=== PATIENT | male | born 1950 | race Caucasian/White ===

== ENCOUNTER 2024-07-27 02:22 | Inpatient (IN) | payer BC, MEDICARE ==
[~2024-07-27] VITALS: Ht 170.2 cm; Wt 95.8 kg
[2024-07-27] VITALS (16 sets, daily range): BP systolic 130–153; BP diastolic 74–94; PULSE 62–78; RESP 14–24; TEMP 97.2–99.2; O2SAT 93–96
--- NOTE | 2024-07-27 02:30 | ELECTROCARDIOGRAPH REPORT ---
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 Geovani Desouza Measurements Intervals [place] Rate: 84 P: 17 MT: 184 QRS: -53 QRSD: 112 T: 78 QT: 377 QTc: 446 Interpretive Statements Sinus rhythm LAD, consider left anterior fascicular block Baseline wander in lead(s) II Electronically Signed On 07-27-2024 3:09:[address] Geovani Desouza Please click the below link to view image of tracing.
[2024-07-27] MEDS ORDERED: VALS320T17 PO (02:36)
--- NOTE | 2024-07-27 02:36 | Physician Documentation ---
History of Present Illness ~ Chief Complaint: See Chief Complaint Stated Complaint: CHEST PAIN Time Seen by MD: 02:34 OK to notify your PCP?: Yes Source: patient, RN/MD, RN notes reviewed, old records Mode of Arrival: Air Transport Exam Limitations: no limitations HPI 74 year old male presents as a transfer from [facility] due to an NSTEMI, he was started on Heparin and sent to our facility via helicoper. HPI per [facility] 74 year old male presents with chest pain. This started about 30 minutes to 45 minutes ago. It is left sided, non radiating. Associate with some nausea but no vomiting, diaphoresis. He has not had similar previously. He has been having increased blood pressure medicine week or 2 ago but they have been noticing pressures over [address] Chest + Abdomen + Pelvis w Con via [facility] Impressions: Chronic elevation left hemidiaphram with distended air and fluid filled stomach beneath the hemidiaphragm. Tjere is no evidence of bowel obstruction or perforation. Bilateral pecocaliectasis greater on the right possibly due to chronc ureterop elvic junction stenosis. There is no visual calculi. Renal spinal lithiasis L5-S1 due to a combination is bilateral spondyolysis and degenerative changes. Left posterior basilar subsebmental atelectasis, indeterminate in age. Superimposed pnuemonia not excluded. XR Chest 1 View Portable Impression: Chronic elevation right hemidoaphragm with air filled loops of bowl beneath the left hemidiaphragm. Otherwise unremarkable expiratory chest. Medication Reconciliation Allergies: Coded Allergies: No Known Allergies (Unverified , 07/27/24) Scheduled Aspirin (Aspirin), 1 TAB PO DAILY Atorvastatin Calcium (Atorvastatin Calcium), 20 MG PO DAILY Carvedilol (Coreg), 1 TAB PO Q12H Clopidogrel Bisulfate (Plavix), 1 TAB PO DAILY Valsartan (Valsartan), 1 TAB PO DAILY, (Reported) Scheduled PRN Ibuprofen (Ibuprofen), 1 TAB PO DAILY PRN for headache, (Reported) Discontinued Medications Ibuprofen (Ibuprofen), 2 CAP PO Q8H PRN for headache, (Reported) Discontinued Reason: patient no longer taking Review of Systems All Other Systems at this time: Reviewed and Negative ROS As stated above in the HPI, otherwise all systems are reviewed and negative. Physical Exam Vital Signs: RN Vital Signs have been reviewed: Yes, Temperature: 98.9, Source: Oral, Heart Rate: 79, Respiratory Rate: 17, BP: 158/96, Pulse Oximetry: 97, Weight: 95.800 Oxygen Flow Rate: 0 Pulse Oximetry Reflects: adequate oxygenation Physical Exam General: The patient is well developed, well nourished, nontoxic appearing and is in no acute distress. Skin: [place], warm and dry with no rashes. HEENT: Head was normocephalic and atraumatic. Eyes - pupils equal, round, reactive to light and accommodation. Extraocular movements were intact. Con junctivae were nonicteric. Ears - bilateral tympanic membranes were normal. The mouth and oropharynx were clear with moist mucous membranes. There were no pharyngeal exudates or erythema. Neck: Supple and nontender. There was no jugular venous distention, lymphadenopathy, thyromegaly or masses. Chest: Clear to auscultation bilaterally without wheezes, rales or rhonchi. No accessory muscle use. No dullness to percussion. Heart: Rate regular and rhythmic. S1, S2. No murmurs. Palpation of the chest wall was normal. No rubs or thrills. Abdomen: Soft, nontender and nondistended. Positive bowel sounds. No guarding or rebound. No hepatosplenomegaly or palpable masses. Extremities: Trace edema to the lower extremities. The patient moves all extremities. Pulses were equal and symmetric. Neurologic: Cranial nerves II-XII were intact. Sensation was intact to light touch throughout. Motor strength was 5/5 in all four extremities. Deep tendon reflexes were intact in both upper and lower extremities. Psychologic: The patient was oriented to person, place and time. The patient demonstrated appropriate judgement and insight. Progress Progress Note 0314: The case was discussed with the hospitalist who was informed on the case and kindly agreed to admission. Results/Orders Reviewed/noted all lab results: Yes Results/Orders Orders - JOSE DANIEL BEAL MD Monitor (07/27/24 02:25) Saline Lock (07/27/24 02:25) Oxygen (07/27/24 02:25) Electrocardiogram (07/27/24 02:25) Page Hospitalist (07/27/24 02:52) Completed Orders - JOSE DANIEL BEAL MD Cbc/Diff (07/27/24 02:25) PBNP (07/27/24 02:25) Electrocardiogram (07/27/24 02:25) CMP (07/27/24 02:25) Hs Troponin I W Calculations (07/27/24 02:25) Hs Troponin I W Calculations (07/27/24 05:25) Cardiac Ptt (07/27/24 02:25) Pt Inr (07/27/24 02:25) Nitroglycerin 0.2mg/Hour Patch (Nitro-Du (07/27/24 02:55) No Initial Heparin Drip Bolus (No Initia (07/27/24 03:05) Message To Nursing (07/27/24 03:25) Laboratory Tests Test 07/27/24 02:50 White Blood Count 9.6 Red Blood Count 4.71 Hemoglobin 14.4 Hematocrit 42.6 Mean Corpuscular Volume 90.5 Mean Corpuscular Hemoglobin 30.5 Mean Corpuscular Hemoglobin Concent 33.7 Red Cell Distribution Width 13.0 Platelet Count 220 Mean Platelet Volume 7.8 Neutrophils (%) (Auto) 59.4 Lymphocytes (%) (Auto) 28.6 Monocytes (%) (Auto) 9.2 Eosinophils (%) (Auto) 1.4 Basophils (%) (Auto) 1.4 H Neutrophils # (Auto) 5.7 Lymphocytes # (Auto) 2.7 Monocytes # (Auto) 0.9 Eosinophils # (Auto) 0.1 Basophils # (Auto) 0.1 CBC Comment Prothrombin Time 11.2 INR International Normalized Ratio 1.1 APTT (Heparin Protocol) 46 Coagulation Comments Sodium Level 141 Potassium Level 3.6 Chloride Level 106 Carbon Dioxide Level 27.4 Anion Gap 8 Blood Urea Nitrogen 18 Creatinine 0.93 Estimated GFR/1.73 m2 80 BUN/Creatinine Ratio 19.4 Glucose Level 111 H Calcium Level 8.3 L Total Bilirubin 0.5 Aspartate Amino Transf (AST/SGOT) 66 H Alanine Aminotransferase (ALT/SGPT) 29 Alkaline Phosphatase 73 Troponin I High Sensitivity 8032 *H Pro-B-Type Natriuretic Peptide 291 H Total Protein 6.9 Albumin 3.6 Globulin 3.3 Albumin/Globulin Ratio 1.1 Chemistry Comments Re-Evaluation Re-Evaluation : Re-Evaluation: Improved Progress Patient was seen and examined. Patient is given reassurance. The patient was transferred from [facility] with a non ST-elevation myocardial infarction. Patient upon arrival was placed in a room IV lines were established. Patient was started on a heparin drip nitroglycerin was also started. Laboratory work was obtained. Patient's troponin was 8002nd [place] [address] patient's chemistry was reassuring and within normal limits. Magnesium 1.7 LFTs within normal limits coagulation was within normal limits despite being on a heparin drip. Patient was then admitted to the hospitalist service for workup and evaluation and cardiac catheterization. Patient's pain was improved upon arrival. clinical trials data coordinator interpretation shows normal sinus rhythm heart rate 90s, no ectopy, normal, my interpretation. 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 Jose Daniel Beal Measurements Intervals [place] Rate: 84 P: 17 AR: 184 QRS: -53 QRSD: 112 T: 78 QT: 377 QTc: 446 Interpretive Statements Sinus rhythm LAD, consider left anterior fascicular block Baseline wander in lead(s) II Electronically Signed On 07-27-2024 3:09:[address] Jose Daniel Beal Please click the below link to view image of tracing. EKG Date and Time:07/27/24226 Electronically Signed by: JOSE DANIEL BEAL MD Date and Time: 07/27/24 0309 Heart Score: Heart Score Response (Comments) Value History Highly Suspicious 2 EKG Repolarization Disturb 1 Age >65 2 Risk Factors 1 or 2 risk factors 1 Troponin >3 x's Normal limit 2 Total 8 Medical Decision Making Additional info obtained from: old records Differential Dx:Considerations: Include: angina, aortic dissection, chest wall pain, cholelithiasis, CHF, costochondritis, esophageal reflux/spasm, gastritis, herpes zoster, myocardial infarction, pericarditis, pleuritis, pancreatitis, pneumonia, pneumothorax, pulmonary embolus, other Departure Time of Disposition: 03:14 Disposition: 09 ADMITTED INPATIENT Admitted to Inpatient Unit: yes, to hospitalist Admission Level of Care: PCU with Tele Impression: Primary Impression: NSTEMI (non-ST elevated myocardial infarction) Condition: Guarded Referrals: NO PRIMARY CARE PROVIDER (PCP) Prescriptions Clopidogrel Bisulfate (Plavix) 75 Mg Tablet 1 TAB PO DAILY for 30 Days, #30 TAB 0 Refills Prov: BRIANNE MORA MD 07/29/24 Atorvastatin Calcium (Atorvastatin Calcium) 20 Mg Tablet 20 MG PO DAILY for 30 Days, #30 TAB Prov: BRIANNE MORA MD 07/29/24 Carvedilol (Coreg) 3.125 Mg Tablet 1 TAB PO Q12H for 30 Days, #60 TAB Prov: BRIANNE MORA MD 07/29/24 Aspirin (Aspirin) 81 Mg Tab.chew 1 TAB PO DAILY for 30 Days, #30 TAB.CHEW Prov: BRIANNE MORA MD 07/29/24 Education Educated: Patient Educated regarding: diagnosis, need for follow up, other Critical Care Note Total Time (mins): 33 Critical Care Note The very real possibility of a deterioration of this patient's condition required the highest level of my preparedness for sudden, emergent intervention. I provided critical care services, which included medication orders, frequent reevaluations of the patient's condition and response to treatment, ordering and reviewing test results, and discussing the case with various consultants. Excludes time spent performing separately billable procedures. The critical care time associated with the care of the patient was. 33 minutes Signature Scribe Signature: Scribed for Jose Daniel Beal MD by Heather Coley . 07/27/24 03:16 Attestation: The note accurately reflects work and decisions made by me.Jose Daniel Beal MD 07/27/24 02:35 JOSE DANIEL BEAL MD July 27, 2024 02:36 HEATHER MENDOZA July 27, 2024 03:15
[2024-07-27] MEDS: nitroGLYCERIN 0.2mg/hour patch TD ONE (03:00)
[2024-07-27] MEDS ORDERED: heparin 10,000 units/1 ML INJ IV PRN (03:05)
[2024-07-27] MEDS ORDERED: IBUP-2417 PO (03:07)
[2024-07-27] MEDS: HEPARIN DRIP INITAL BOLUS --- DO NOT GIVE/ORDER MC ONE (03:08)
[2024-07-27 03:13] LABS: BASOPHILS # (AUTO) 0.1 X10'3 (0-0.2); BASOPHILS % (AUTO) 1.4 % (0-1); EOSINOPHILS # (AUTO) 0.1 X10'3 (0-0.9); EOSINOPHILS % (AUTO) 1.4 % (0-6); HEMATOCRIT 42.6 % (42.0-52.0); HEMOGLOBIN 14.4 g/dl (14.0-17.9); LYMPHOCYTES # (AUTO) 2.7 X10'3 (1.1-4.8); LYMPHOCYTES % (AUTO) 28.6 % (21-51); MEAN CORPUSCULAR HEMOGLOBIN 30.5 PG (27.0-31.0); MEAN CORPUSCULAR HGB CONC 33.7 g/dL (33.0-36.5); MEAN CORPUSCULAR VOLUME 90.5 FL (78-98); MEAN PLATELET VOLUME 7.8 FL (7.4-10.4); MONOCYTES # (AUTO) 0.9 X10'3 (0-0.9); MONOCYTES % (AUTO) 9.2 % (2-12); NEUTROPHILS # (AUTO) 5.7 X10'3 (1.8-7.7); NEUTROPHILS % (AUTO) 59.4 % (42-75); PLATELET COUNT 220 X10'3 (140-440); RED BLOOD COUNT 4.71 X10'6 (4.70-6.10); WHITE BLOOD COUNT 9.6 X10'3 (4.5-11.0)
[2024-07-27 03:18] LABS: INR 1.1 INR; PROTHROMBIN TIME 11.2 SECONDS (9.0-12.0)
[2024-07-27 03:21] LABS: ALANINE AMINOTRANSFERASE 29 U/L (12-78); ALBUMIN 3.6 G/DL (3.4-5.0); ALBUMIN/GLOBULIN RATIO 1.1 (1.1-1.5); ALKALINE PHOSPHATASE 73 IU/L (46-116); ANION GAP 8 (8-16); ASPARTATE AMINO TRANSFERASE 66 U/L (10-37); BILIRUBIN,TOTAL 0.5 MG/DL (0.1-1.0); BLOOD UREA NITROGEN 18 MG/DL (7-18); BUN/CREATININE RATIO 19.4 (10.0-20.0); CALCIUM 8.3 MG/DL (8.5-10.1); CHLORIDE 106 MMOL/L (99-107); CREATININE 0.93 MG/DL (0.60-1.10); GLUCOSE 111 MG/DL (70-104); POTASSIUM 3.6 MMOL/L (3.5-5.1); SODIUM 141 MMOL/L (135-145); TOTAL CARBON DIOXIDE 27.4 MMOL/L (24-32); TOTAL PROTEIN 6.9 G/DL (6.4-8.2); eCRCL 67 ML/MIN; eGFR 80 ML/MIN
[2024-07-27 03:28] LABS: PRO BRAIN NATRIURETIC PEPTIDE 291 PG/ML (0-125)
[2024-07-27] MEDS ORDERED: potassium Cl 20 mEq SR tablet PO PRN ×2 (03:30)
[2024-07-27] MEDS ORDERED: magnesium sulf-water 4G/100mL 100 ML IV PRN (03:30)
[2024-07-27] MEDS ORDERED: magnesium hydroxide 30ml (MOM) UD suspension PO PRN (03:30)
[2024-07-27] MEDS ORDERED: magnesium sulf-water 2g/50mL 50 ML IV PRN (03:30)
[2024-07-27] MEDS ORDERED: potassium Cl 40MEQ/1/2NS 520ml 520 ML IV PRN (03:30)
[2024-07-27] MEDS ORDERED: magnesium Cl slow-release 64mg tablet PO PRN (03:30)
[2024-07-27] MEDS ORDERED: ondansetron/PF 4mg/2ml inj IV PRN (03:30)
[2024-07-27] MEDS ORDERED: mag hydrox/Alum hydrox/simeth 30ml oral suspension PO PRN (03:30)
[2024-07-27] MEDS ORDERED: morphine 2 MG/ML inj. syringe IV PRN ×2 (03:30)
[2024-07-27] MEDS: heparin 25,000 UNIT/250ml bag 250 ML IV PRN (03:31)
[2024-07-27] MEDS: MESSAGE TO NURSING IV ONE ×3 (03:31→16:23)
[2024-07-27] MEDS ORDERED: IBUP-1985 PO (03:35)
--- NOTE | 2024-07-27 03:41 | HISTORY AND PHYSICAL-Residence ---
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 He doesn't remember names. Reason for Admit\Complaint: Chest pain History of Present Illness 74-year-old male patient with past medical history of hypertension, right shoulder pain, sinus congestion came to the hospital transferred from [facility] with chief complaint of chest pain. The patient reports that yesterday approximately around 5:00 p.m. he ate a banana, drank some water and sat down when suddenly he started having chest pain described as a pressure type, 8/10 in intensity, localized in the left side of the chest, nonradiating. Associated to this chest pressure the patient also endorsed mild nausea and mild shortness of breath due to his chest pressure, but no vomiting or diaphoresis. He denies any similar symptoms previously. The patient currently denies any cough, diarrhea, constipation, lightheadedness, dizziness. Allergies: Coded Allergies: No Known Allergies (Unverified , 07/27/24) Home Medications Home Medications Active Reported Ibuprofen 600 Mg Tablet 1 Tab PO DAILY PRN 10 Days with food Valsartan 320 Mg Tablet 1 Tab PO DAILY 30 Days Past Medical History Past Medical History Hypertension. Right shoulder pain. Sinus congestion. Past Surgical History Surgical History Comment Thoracic disc replacement. He does not remember which one. Tonsillectomy during childhood. 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 HEENT: Conjunctive are pink, sclerae clear, no icterus, pupil is equal in both sides, reactive to light, no ear discharge, no pharyngeal erythema or an edema. Neck: Supple, no JVD, no lymphadenopathy and thyromegaly. Chest: Equal air entry on both lungs, no additional sounds no rhonchi no wheezing at the moment. Cardiovascular: S1-S2 regular sinus rhythm and, regular rate, no gallops, no rubs, no murmurs Abdomen: No visible peristalsis, Bowel sounds present on auscultation, soft, nontender, no guarding, no rigidity Extremities: No obvious deformities, no pitting edema bilaterally, capillary refill intact, peripheral pulsations are intact on both sides Central Nervous System: No focal neurological deficits, no motor or sensory weakness in all 4 extremities, could move all 4 extremities, 2+ deep tendon reflexes, negative Babinski. Musculoskeletal: No joint swelling, deformities, inflammations, and no scoliosis and back tenderness Skin: Warm and dry. Diagnostic Data Last Recorded Lab Results: 07/27/24 0250 07/27/24 0250 Diagnostic Data: Laboratory Tests Test 07/27/24 02:50 Prothrombin Time 11.2 SECONDS (9.0-12.0) INR International Normalized Ratio 1.1 INR APTT (Heparin Protocol) 46 SECONDS (45-60) Coagulation Comments Advance Care Planning Advanced Care plannin - 30 Minutes (I spent a total of 17 minutes on reviewing various resuscitative measures/ACP with the patient at the time of admission. The patient has decided on a full code status.) Additional Plan Assessment and plan: 74-year-old male patient came to the hospital with chief complaint of chest pain. Chest pain: NSTEMI: The patient came to the hospital with chief complaint of chest pain, pressure type. Troponin levels 8032. Follow-up serial troponin levels. Follow-up echocardiogram. Follow-up lipid panel. The patient received aspirin 324 mg. Aspirin 81 mg daily. Atorvastatin 80 mg daily. Heparin drip. Nitroglycerin 0.4 mg p.r.n. Carvedilol 3.125 mg b.i.d. Consult cardiology in a.m. Hypertension: Current blood pressure: 158/96. Carvedilol 3.125 mg b.i.d. Valsartan 325 mg daily after med reconciliation. Hyperglycemia: Glucose of 111. Follow-up hemoglobin A1c. Code status: Full code DVT prophylaxis: Currently on heparin Analgesia/sedation: Morphine Line/tube: PIV GI prophylaxis: None Nutrition: NPO PT: Ordered Prognosis: Guarded Disposition: The patient will be admitted to PCU with telemetry. Carlos Mancuso Internal Medicine Resident [facility] Date of Service: July 27, 2024 Billing Provider: DANILO PINA MD, FRANCO LUIS, RES July 27, 2024 03:41
[2024-07-27] MEDS: normal saline 1000ml 1,000 ML IV SCH ×2 (03:47→17:00)
[2024-07-27] MEDS ORDERED: nitroGLYCERIN 0.4mg SUBLingual tab SL PRN (04:05)
[2024-07-27] MEDS: HEPARIN DRIP-CARDIAC**PHARMACIST-TO-DOSE IV SCH (04:15)
[2024-07-27] MEDS: K and/or MAG REPLACEMENT MC SCH (08:00)
[2024-07-27] MEDS: aspirin 81mg, enteric-coated 1 TAB TABLET.DR PO SCH (08:45)
[2024-07-27] MEDS: carVEDilol 3.125mg tablet PO SCH (08:46)
[2024-07-27] MEDS: atorvastatin 20mg tablet PO SCH (08:46)
[2024-07-27] MEDS: docusate sod 100mg capsule PO SCH (08:46)
[2024-07-27] MEDS: acetaminophen 325mg tablet PO PRN (08:46)
[2024-07-27 08:59] LABS: MAGNESIUM 1.8 MG/DL (1.5-2.4); POTASSIUM 3.6 MMOL/L (3.5-5.1); THYROID STIMULATING HORMONE 1.06 ulU/ml (0.34-4.50)
[2024-07-27 09:14] LABS: HEMOGLOBIN A1C 5.6 % (4.5-6.2)
[2024-07-27 09:46] LABS: BASOPHILS # (AUTO) 0.1 X10'3 (0-0.2); BASOPHILS % (AUTO) 0.7 % (0-1); EOSINOPHILS # (AUTO) 0.2 X10'3 (0-0.9); EOSINOPHILS % (AUTO) 1.8 % (0-6); HEMATOCRIT 40.8 % (42.0-52.0); HEMOGLOBIN 13.7 g/dl (14.0-17.9); LYMPHOCYTES # (AUTO) 2.4 X10'3 (1.1-4.8); LYMPHOCYTES % (AUTO) 25.3 % (21-51); MEAN CORPUSCULAR HEMOGLOBIN 30.3 PG (27.0-31.0); MEAN CORPUSCULAR HGB CONC 33.6 g/dL (33.0-36.5); MEAN CORPUSCULAR VOLUME 90.1 FL (78-98); MEAN PLATELET VOLUME 7.5 FL (7.4-10.4); MONOCYTES # (AUTO) 0.9 X10'3 (0-0.9); MONOCYTES % (AUTO) 9.6 % (2-12); NEUTROPHILS # (AUTO) 6.1 X10'3 (1.8-7.7); NEUTROPHILS % (AUTO) 62.6 % (42-75); PLATELET COUNT 207 X10'3 (140-440); RED BLOOD COUNT 4.53 X10'6 (4.70-6.10); RED CELL DISTRIBUTION WIDTH 13.2 % (11.5-14.5); WHITE BLOOD COUNT 9.7 X10'3 (4.5-11.0)
[2024-07-27] MEDS ORDERED: verapamil 2.5 mg/ml inj IV ONE (15:57)
[2024-07-27] MEDS ORDERED: LIDOcaine 1% 30ml preserv. free vial ONE (15:58)
[2024-07-27] MEDS ORDERED: fentaNYL/PF 50MCG/1 ML 2ML syringe ONE (15:58)
[2024-07-27] MEDS ORDERED: iohexol 350MG/ML 100ml bottle IV ONE (15:58)
[2024-07-27] MEDS ORDERED: heparin 1,000unit/ml 10ml vial 10 ML ONE (15:58)
[2024-07-27] MEDS ORDERED: midazolam 1 mg/ML 2ml injection ONE (15:58)
[2024-07-27] MEDS ORDERED: LIDOcaine 1% (10mg/ml) 2ml vial ONE (15:59)
[2024-07-27] MEDS ORDERED: nitroGLYCERIN 500mcg/5mL D5W 5 ML IV ONE (16:03)
[2024-07-27] MEDS ORDERED: nitroGLYCERIN 500mcg/5mL D5W 0 ML IV ONE (16:03)
--- NOTE | 2024-07-27 17:06 | CARDIOLOGY REPORT ---
APPROVED REPORT EXAM: Comprehensive 2D, Doppler, and color-flow Echocardiogram. Patient Location: [facility] Heart Rate: 69 bpm Rhythm: NSR Indications CHEST PAIN ELEVATED PROBNP 291 HS TROPONIN 8032 HTN SACK MAKER: None. PRIOR ECHOCARDIOGRAM: None. 2D Dimensions RVDd 3.4 cm IVSd 1.2 (0.7-1.1cm) LVDd 4.4 cm PWd 1.3 (0.7-1.1cm) IVSs 1.4 (0.8-1.2cm) LVDs 3.2 (2.5-4.0cm) PWs 1.6 (0.8-1.2cm) LVOT Diameter 2.06 (1.8-2.4cm) LVEF(%) 55.0 (>50%) FS (%) 26.1 % SV 45.0 ml CO 3.1 L/min M-Mode Dimensions Left Atrium(MM) 4.20 (2.5-4.0cm) Aortic Root 3.70 (2.2-3.7cm) Aortic Cusp Exc 1.59 (1.5-2.0cm) Aortic Valve AoV Peak Jd. 157.0 cm/s AoV VTI 35.8 cm AO Peak GR. 9.9 mmHg AO Mean GR. 5 mmHg LVOT VTI 30.59 cm LVOT Peak Jd. 141.1 cm/s MANJULA(VTI)/BSA 2.84 cm2/m2 MANJULA (VTI) 2.84 cm2 Mitral Valve MV E Velocity 70.8 cm/s MV Peak Gr. 3 mmHg MV DECEL TIME 272 ms MV A Velocity 95.2 cm/s MV PHT 60 ms E/A Ratio 0.7 MVA (PHT) 3.67 cm2 MV VMax89.0 cm/s Tricuspid Valve TR P. Velocity 262 cm/s RAP ESTIMATE 5 mmHg TR Peak Gr. 27 mmHg RVSP 32 mmHg LEFT VENTRICLE Normal LV size with mild hypertrophy. Overall systolic function is lower normal. LVEF is 50-55%. RIGHT VENTRICLE Right ventricle is borderline dilated with normal function. RVSP 32 mmHg ATRIA Left atrium is mildly dilated. Right atrium is borderline dilated. AORTIC VALVE Trileaflet AV appears mildly sclerotic without stenosis. No insufficiency. MITRAL VALVE Mitral valve is grossly normal in structure. Mild mitral annular calcification. Mild regurgitation, best seen in subcostal 4 chamber view. TRICUSPID VALVE TV appears structurally normal with mild regurgitation, best seen in subcostal views. PULMONIC VALVE Pulmonic valve is not well visualized. Mild insufficinecy. GREAT VESSELS The aortic root is normal in size. IVC is normal in size and collapses greater than 50% with inspirat ion. PERICARDIUM Normal pericardium. No effusion. Other Information Study Quality: Fair Conclusion Normal LV size with mild hypertrophy. Overall systolic function is lower normal. LVEF is 50-55%. Right ventricle is borderline dilated with normal function. RVSP 32 mmHg Left atrium is mildly dilated. Right atrium is borderline dilated. Trileaflet AV appears mildly sclerotic without stenosis. No insufficiency. Mitral valve is grossly normal in structure. Mild mitral annular calcification. Mild regurgitation, best seen in subcostal 4 chamber view. TV appears structurally normal with mild regurgitation, best seen in subcostal views. Pulmonic valve is not well visualized. Mild insufficinecy. Normal pericardium. No effusion.
--- NOTE | 2024-07-27 17:08 | CONSULTATION REPORT ---
KASIEDELFINAHERONSTAN A BLOW MOLD MACHINE OPERATOR 07/27/24 7488: History of Present Illness Providers to CC CC: ROSA NAVARRO MD ~ Reason for Admit\Admit Dx: Cardiology consultation History of Present Illness This is a 74-year-old male with recent diagnosis of hypertension. Presented secondary to chest pain to transferring facility. He was found to have an NSTEMI and cardiology consultation was requested with the on-call hot kettle tender, Dr. Moreland. Patient currently resting in bed. Denies chest pain or pressure. When he had his chest pain it was located in the left chest and nonradiating. Described as pressure with associated shortness for breath and nausea and vomiting. No diaphoresis. EKG with sinus rhythm no acute ST changes. Preliminary echocardiogram with preserved EF and no wall motion abnormalities. Allergies: Coded Allergies: No Known Allergies (Unverified , 07/27/24) Home Medications Home Medications Active Reported Ibuprofen 600 Mg Tablet 1 Tab PO DAILY PRN 10 Days with food Valsartan 320 Mg Tablet 1 Tab PO DAILY 30 Days Past Medical History Medical History Comment Hypertension Past Surgical History Surgical History Comment Back surgery Past Social History Social History Comment Lifelong nonsmoker. No alcohol or recreational drug use. Physical Exam Last Vital Signs Recorded: RN Vital Signs have been reviewed: Yes, Temperature: 97.2, Source: Oral, Heart Rate: 76, Respiratory Rate: 16, BP: 131/81, Pulse Oximetry: 94, Weight: 95.800 Physical Exam General: Awake, alert, oriented. No apparent distress Neck: Supple. Normal range of motion. No JVD Respiratory: Lungs are clear to auscultation bilaterally. No respiratory distress. Chest: Normal shape and size. No accessory muscle use. Cardiovascular: Regular rate and rhythm. S1-S2. No murmur, gallop, rub. Gastrointestinal: Abdomen is soft. Nontender to palpation. Bowel sounds present. Extremities: No lower extremity edema, cyanosis or clubbing. Neurologic: Alert and oriented x4. Nonfocal Psychiatric: Normal mood and affect. Skin: Normal color. Warm and dry. Review of Systems ROS Review of systems negative except documented in HPI. Results EKG EKG Sinus rhythm with no acute ST changes Diagram Lab Result Diagram: 07/27/24 0925 07/27/24 0770 Assessment/Plan Additional Plan This is a 74-year-old male who presented secondary to chest pain. The following is his problem list: NSTEMI Echocardiogram with preserved EF and no wall motion abnormalities Underwent cardiac catheterization with Dr. Moreland that revealed moderate coronary artery disease not requiring intervention --aspirin 81 mg daily --start Plavix 75 mg daily --heparin has been stopped --check lipids. Goal LDL less than 55 given coronary artery disease with by cardiac catheterization --start high-intensity statin --continue beta-ana rosa --referral made for cardiac rehab. --heart healthy diet Hypertension --continue outpatient follow up for up titration of medications to maintain a blood pressure less than 130/[address] Moreland. Supervising MD Supervising Physician: SHIRLEY Shen MD 07/27/24 1832: History of Present Illness Providers to CC CC: ROSA NAVARRO MD Allergies: Coded Allergies: No Known Allergies (Unverified , 07/27/24) Results Diagram Lab Result Diagram: 07/27/24 0925 07/27/24 0741 Assessment/Plan Additional Plan The patient was seen and evaluated. Agree with noted by BLOW MOLD MACHINE OPERATOR. Patient underwent an uncomplicated coronary angiography via right radial access and was noted to have moderate non-obstructive disease of the LAD and RCA. Will treat medically with DAPT for 6 months, followed by aspirin indefinitely. Also add a statin to attain a goal LDL of < 55. STAN LEAVITT NP July 27, 2024 17:08 SHIRLEY MORELAND MD July 27, 2024 18:32
[2024-07-27 17:39] LABS: CHOL/HDL RATIO 3.1 (0.00-4.99); CHOLESTEROL 180 MG/DL (0-200); HDL CHOLESTEROL 59 MG/DL (35-60); LDL CHOLESTEROL 109 MG/DL (50-100); TRIGLYCERIDES 23 MG/DL (20-135)
[2024-07-27] MEDS: clopidogrel 75mg tablet PO SCH (18:12)
--- NOTE | 2024-07-27 18:29 | CARDIAC CATH REPORT ---
Post Cath Report Providers to CC CC: MEÑO MORELAND MD ~ Date of Procedure: July 27, 2024 Pre-Procedure Diagnosis: NSTEMI History: Htn CCS Anginal Class: IV NYFA Functional Class: II Procedure Preformed: Left Heart Cath Post Procedure DX Same?: Yes Findings Findings: Procedure Date: 07/27/24 Procedure(s): 1. Left Heart Cath, Coronary Angiography 2. Conscious sedation monitoring for a total of 15 minutes. 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 The patient is being brought to the cardiac label remover for further evaluation of their coronary anatomy with a left heart cath and possible percutaneous coronary intervention. Procedure Details: Informed consent was obtained. An Tee's test was performed pre-procedure a nd the right radial artery was deemed adequate for arterial access. The right wrist was preped and draped in usual manner. The area was infiltrated with 2% lidocaine. Right radial artery was entered with a terumo sureflo needle and a 6F sheath was inserted. A cocktail consisting of heparin, nitroglycerin, and verapamil was injected in the sheath. Selective left coronary angiogram was performed with a Tig catheter and a selective right coronary angiogram was performed with a JR4 catheter. The JR4 catheter was used to cross the aortic valve and obtain an LVEDP. At the completion of the procedure, all the wires and catheters were removed. The radial sheath was removed and a trans-radial band was used to achieve hemostasis. The patient was given conscious sedation and monitoring for a total of 15 minutes. Catheters Used: 1. 6 Thai [place] 2. 6 Thai JR5 All catheters were exchanged over the wire. CORONARY ANGIOGRAM: Left Main: Patent vessel with no angiographic evidence of disease. Left Anterior Descending: Moderate caliber vessel with noted moderate (50%) proximal disease. Second diagonal branch with noted moderate (40%) proximal disease. The mid to distal LAD has mild luminal irregularities. Left Circumflex: Non-dominant vessel with mild (20%) luminal irregularities in its course. Right Coronary Artery: Dominant vessel that is large in caliber. The mid portion of the RCA has noted moderate (50%) disease. Left Ventricular Angiography: Not performed. Hemodynamics: Please refer to label remover flow sheet. LVEDP: 28 mmHg. Valve Disease: No gradient noted upon pullback across the aortic valve. Complications: None Impression: 1. Right dominant system 2. Moderate non-obstructive coronary artery disease of the LAD and RCA. 3. Elevated LVEDP of 28 mmHg consistent with heart failure with preserved ejection fraction. 4. Conscious sedation monitoring for a total of 15 minutes. Recommendations: -Routine post cath care and orders. -Transfer to the floor. -Dual antiplatelet therapy for 6 months, then ASA indefinitely. -Continue with medical management. -Aggressive lifestyle and risk factor modifications were stressed to the patient. At the termination of procedure radial sheath removed and trans-radial band applied with good hemostasis Dominance: Right Moderate Sedation: Yes Complications: None Estimated Blood Loss: less than 5 cc Treatment Plan: Medical Therapy Condition on leaving Teacher Private: Stable MEÑO MORELAND MD July 27, 2024 18:29
[2024-07-28] VITALS (8 sets, daily range): BP systolic 119–167; BP diastolic 60–94; PULSE 71–97; RESP 15–26; TEMP 97.5–100.1; O2SAT 92–96
[2024-07-28 06:20] LABS: BASOPHILS # (AUTO) 0.1 X10'3 (0-0.2); BASOPHILS % (AUTO) 0.7 % (0-1); EOSINOPHILS # (AUTO) 0.2 X10'3 (0-0.9); EOSINOPHILS % (AUTO) 1.7 % (0-6); HEMATOCRIT 40.2 % (42.0-52.0); HEMOGLOBIN 13.4 g/dl (14.0-17.9); LYMPHOCYTES # (AUTO) 2.3 X10'3 (1.1-4.8); LYMPHOCYTES % (AUTO) 23.4 % (21-51); MEAN CORPUSCULAR HGB CONC 33.3 g/dL (33.0-36.5); MEAN CORPUSCULAR VOLUME 90.2 FL (78-98); MEAN PLATELET VOLUME 8.2 FL (7.4-10.4); MONOCYTES # (AUTO) 1.2 X10'3 (0-0.9); MONOCYTES % (AUTO) 12.5 % (2-12); NEUTROPHILS % (AUTO) 61.7 % (42-75); PLATELET COUNT 190 X10'3 (140-440); RED BLOOD COUNT 4.46 X10'6 (4.70-6.10); RED CELL DISTRIBUTION WIDTH 12.9 % (11.5-14.5); WHITE BLOOD COUNT 9.7 X10'3 (4.5-11.0)
[2024-07-28 06:36] LABS: ALANINE AMINOTRANSFERASE 32 U/L (12-78); ALBUMIN 3.1 G/DL (3.4-5.0); ALKALINE PHOSPHATASE 63 IU/L (46-116); ANION GAP 6 (8-16); ASPARTATE AMINO TRANSFERASE 113 U/L (10-37); BILIRUBIN,TOTAL 0.6 MG/DL (0.1-1.0); BLOOD UREA NITROGEN 14 MG/DL (7-18); BUN/CREATININE RATIO 15.4 (10.0-20.0); CHLORIDE 109 MMOL/L (99-107); CHOLESTEROL 145 MG/DL (0-200); CREATININE 0.91 MG/DL (0.60-1.10); GLUCOSE 109 MG/DL (70-104); HDL CHOLESTEROL 49 MG/DL (35-60); LDL CHOLESTEROL 86 MG/DL (50-100); MAGNESIUM 1.7 MG/DL (1.5-2.4); POTASSIUM 3.9 MMOL/L (3.5-5.1); SODIUM 142 MMOL/L (135-145); TOTAL CARBON DIOXIDE 26.7 MMOL/L (24-32); TOTAL PROTEIN 6.2 G/DL (6.4-8.2); TRIGLYCERIDES 38 MG/DL (20-135); eCRCL 69 ML/MIN; eGFR 82 ML/MIN
--- NOTE | 2024-07-28 10:42 | PROGRESS NOTE ---
Progress Note Cardiology Providers to CC ~ Subjective Subjective Patient denies chest pain or pressure. No shortness a breath. Has been up and ambulatory after angiogram yesterday. Objective Result Diagram: 07/28/24 0545 07/28/2445 Objective General: Awake, alert, oriented. No apparent distress Neck: Supple. Normal range of motion. No JVD Respiratory: Lungs are clear to auscultation bilaterally. No respiratory distress. Chest: Normal shape and size. No accessory muscle use. Cardiovascular: Regular rate and rhythm. S1-S2. No murmur, gallop, rub. Gastrointestinal: Abdomen is soft. Nontender to palpation. Bowel sounds present. Extremities: No lower extremity edema, cyanosis or clubbing. Neurologic: Alert and oriented x4. Nonfocal Psychiatric: Normal mood and affect. Skin: Normal color. Warm and dry. Coagulation Studies Laboratory Tests Test 07/27/24 02:50 07/27/24 15:06 Prothrombin Time 11.2 SECONDS (9.0-12.0) INR International Normalized Ratio 1.1 INR APTT (Heparin Protocol) 57 SECONDS (45-60) Coagulation Comments Problem\Assessment\Plan Additional Plan This is a 74-year-old male who presented secondary to chest pain. The following is his problem list: NSTEMI Echocardiogram with preserved EF and no wall motion abnormalities Underwent cardiac catheterization with Dr. Santos that revealed moderate coronary artery disease not requiring intervention involving the LAD and RCA. --aspirin 81 mg daily indefinitely --continue Plavix 75 mg daily for six months --check lipids. Goal LDL less than 55. --continue atorvastatin 40 mg daily --carvedilol 3.125 mg b.i.d. --referral made for cardiac rehab. --heart healthy diet Hypertension --continue outpatient follow up for up titration of medications to maintain a blood pressure less than 130/[address] Santos. Supervising Physician: STAN Sun NP July 28, 2024 10:42
--- NOTE | 2024-07-28 19:47 | PROGRESS NOTE ---
Daily Progress Note Providers to CC No new complaint today, resting comfortably in the bed ~ Central Line/PICC still needed: No Gonzalez-Non Protocol Gonzalez Indications Met/Not Met: F/C Indications Not Met Antibiotic Timeout Antibiotic Ordered?: No MRSA Education MRSA Education Provided to pt: No Subjective As above Objective Vital Signs Date Time Temp Pulse Resp B/P (MAP) Pulse Ox O2 Delivery O2 Flow Rate FiO2 07/28/24 18:30 87 07/28/24 15:38 97.5 26 149/89 (109) 94 07/28/24 11:00 Room Air 07/28/24 08:00 0.0 Vital signs, stable ,afebrile. Pulse Oximetry reflects adequate oxygenation. BMI is 33, weight 95 kg General: well developed, well nourished. Awake , alert, and oriented x4, resting comfortably in the bed, in no acute distress . Skin: Warm, dry, no pallor, no rash or petechiae. HEENT: Atraumatic, normocephalic, EOMI, anicteric sclera B; pink conjunctiva; PERRLA, normal oropharynx, moist oral and nasal mucosa. Tympanic membrane , nose , throat clear. Neck: Trachea midline. Supple, full range of motion, no JVD, bruit , hepatojugular reflex , lymphadenopathy or masses, or other lesions Cardiac: Regular rhythm, regular rate no murmurs, rubs, or gallops. Normal S1 and S2, no S3 noticed. PMI is normal. Respiratory: Equal breath sounds bilaterally, no tachypnea; lungs clear to auscultation bilaterally, no wheezing ,rub or rales, or crackles. Chest wall is symmetric and without deformity. No signs of trauma. Chest wall is nontender. No signs of respiratory distress. Resonance is normal upon percussion bilaterally. Gastrointestinal: Abdomen symmetric, non-distended, soft, non-tender, normal bowel sounds x4 quadrant, normoactive, no hepatosplenomegaly , no masses , no bruit, no flank pain bilaterally. No voluntary guarding, rebound, or rigidity. No tenderness to percussion. No pulsatile masses. Equal femoral pulses. No Parisi's sign or McBurney point tenderness. Back; no CVA tenderness bilaterally, no deformities. Neck and back are without deformity as well. No tenderness noted on palpation of the spinous processes. Spinous processes are midline. Cervical, thoracic, and lumbar paraspinal muscles are not tender and are without spasm. : normal external genitalia, without lesions, swelling, masses or tenderness. Musculoskeletal: Extremities, normal range of motion, non-tender, muscle strength 5/5 x 4. Negative Homans signs bilaterally on lower extremity. Distal pulses full symmetrical, no clubbing, cyanosis , edema. Neurological: Speech is clear, alert, and oriented x 4. No motor or sensory deficit, deep tendon reflexes normal, cerebellar intact. Cranial nerves II-XII intact. Psych: Alert and or appropriate, normal affect. Vascular: Good distal pulses, which are equal x4; capillary refill less than 2 seconds. Lymphatic, no lymphadenopathy. Result Diagram: 07/28/2445 07/28/2445 Coagulation Studies Laboratory Tests Test 07/27/24 02:50 07/27/24 15:06 Prothrombin Time 11.2 SECONDS (9.0-12.0) INR International Normalized Ratio 1.1 INR APTT (Heparin Protocol) 57 SECONDS (45-60) Coagulation Comments Problem\Assessment\Plan Assessment/ Plan This is a 74-year-old male who presented secondary to chest pain. The following is his problem list: NSTEMI Echocardiogram with preserved EF and no wall motion abnormalities Underwent cardiac catheterization with Dr. Santos that revealed moderate coronary artery disease not requiring intervention involving the LAD and RCA. --aspirin 81 mg daily indefinitely --continue Plavix 75 mg daily for six months --check lipids. Goal LDL less than 55. --continue atorvastatin 40 mg daily --carvedilol 3.125 mg b.i.d. --referral made for cardiac rehab. --heart healthy diet Hypertension --continue outpatient follow up for up titration of medications to maintain a blood pressure less than 130/80 DVT and Gastropathy prophylaxis addressed Anticipated to discharge home in the morning Sepsis Screening Reassessment Date: July 28, 2024 Date of Service: July 28, 2024 Billing Provider: BRIANNE MORA MD Common Visit Codes: 47208-[id number] INP/OBS CARE(HIGH) BRIANNE MORA MD July 28, 2024 19:47
[2024-07-28 20:30] LABS: D-DIMER 0.93 MG/L FEU (0-0.50)
[2024-07-29 02:00] VITALS: BP 109/58; PULSE 107; RESP 18; TEMP 97.7; O2SAT 98
[2024-07-29 06:08] LABS: BASOPHILS # (AUTO) 0.1 X10'3 (0-0.2); BASOPHILS % (AUTO) 0.8 % (0-1); EOSINOPHILS # (AUTO) 0.2 X10'3 (0-0.9); EOSINOPHILS % (AUTO) 1.9 % (0-6); HEMATOCRIT 36.6 % (42.0-52.0); HEMOGLOBIN 12.3 g/dl (14.0-17.9); LYMPHOCYTES # (AUTO) 2.8 X10'3 (1.1-4.8); MEAN CORPUSCULAR HEMOGLOBIN 30.3 PG (27.0-31.0); MEAN CORPUSCULAR HGB CONC 33.7 g/dL (33.0-36.5); MEAN CORPUSCULAR VOLUME 89.7 FL (78-98); MEAN PLATELET VOLUME 7.8 FL (7.4-10.4); MONOCYTES # (AUTO) 1.6 X10'3 (0-0.9); MONOCYTES % (AUTO) 15.7 % (2-12); NEUTROPHILS # (AUTO) 5.7 X10'3 (1.8-7.7); NEUTROPHILS % (AUTO) 54.6 % (42-75); PLATELET COUNT 166 X10'3 (140-440); RED BLOOD COUNT 4.08 X10'6 (4.70-6.10); RED CELL DISTRIBUTION WIDTH 13.2 % (11.5-14.5); WHITE BLOOD COUNT 10.4 X10'3 (4.5-11.0)
[2024-07-29 06:27] LABS: ALANINE AMINOTRANSFERASE 31 U/L (12-78); ALBUMIN 2.8 G/DL (3.4-5.0); ALBUMIN/GLOBULIN RATIO 0.9 (1.1-1.5); ALKALINE PHOSPHATASE 57 IU/L (46-116); ANION GAP 9 (8-16); ASPARTATE AMINO TRANSFERASE 51 U/L (10-37); BILIRUBIN,TOTAL 0.4 MG/DL (0.1-1.0); BLOOD UREA NITROGEN 11 MG/DL (7-18); BUN/CREATININE RATIO 14.3 (10.0-20.0); CHLORIDE 108 MMOL/L (99-107); CREATININE 0.77 MG/DL (0.60-1.10); GLUCOSE 107 MG/DL (70-104); MAGNESIUM 1.7 MG/DL (1.5-2.4); POTASSIUM 3.5 MMOL/L (3.5-5.1); SODIUM 143 MMOL/L (135-145); TOTAL CARBON DIOXIDE 26.2 MMOL/L (24-32); TOTAL PROTEIN 5.8 G/DL (6.4-8.2); eCRCL 81 ML/MIN; eGFR > 90 ML/MIN
[2024-07-29 07:00] VITALS: BP 149/90; PULSE 83; RESP 17; TEMP 98; O2SAT 94
[2024-07-29 07:49] LABS: TOTAL CELLS COUNTED 100
[2024-07-29 07:50] LABS: PLATELET ESTIMATE NORMAL
[2024-07-29 08:00] VITALS: RESP 17; O2SAT 94
[2024-07-29 10:28] VITALS: BP 146/85; PULSE 82; RESP 17; TEMP 98.8; O2SAT 93
--- NOTE | 2024-07-29 13:02 | RADIOLOGY REPORT ---
EXAM: NM NM LUNGS HISTORY: ELEVATED D-DIMER, CP COMPARISON: None TECHNIQUE: Following the administration of the ventilation agent, standard projections of the lungs were acquired. The same images were repeated after administration of the perfusion agent. Findings: Ventilation images demonstrate homogenous distribution of radiotracer throughout both lungs. Perfusion images demonstrate homogeneous distribution of radiotracer throughout both lungs. No periph eral wedge-shaped moderate or large subsegmental or segmental mismatched perfusion defects to suggest acute pulmonary embolism. Impression: 1.Based on PIOPED criteria, low probability for pulmonary embolism.
[2024-07-29] MEDS ORDERED: CLOP-32 PO (14:29)
[2024-07-29] MEDS ORDERED: CARV3.12 PO (14:29)
[2024-07-29] MEDS ORDERED: ATOR20TA66 PO (14:29)
[2024-07-29] MEDS ORDERED: ASPI-1265 PO (14:29)
[2024-07-29 15:00] VITALS: BP 158/93; PULSE 85; RESP 20; TEMP 97.7; O2SAT 96
--- NOTE | 2024-07-29 19:37 | DISCHARGE SUMMARY ---
Discharge Summary Providers to No new complaint today ready to be discharged home, cleared by call person for discharge ~ Discharge Summary Assessment Non-STEMI MS, status post cardiac catheterization on this admission Hypertension poor control Control hyperglycemia History of thoracic vertebra replacement Admission Diagnosis: CHEST PAIN Admission Diagnosis Comment: Non-STEMI MS, status post cardiac catheterization on this admission Hypertension poor control Control hyperglycemia History of thoracic vertebra replacement Hospital Course DATE OF ADMISSION: July 27, 2024 DATE OF DISCHARGE: July 29, 2024 Discharge Diagnosis\Comment: Non-STEMI MS, status post cardiac catheterization on this admission Hypertension poor control Control hyperglycemia History of thoracic vertebra replacement Operations\Procedures: Cardiac catheterization 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 The patient reports that yesterday approximately around 5:00 p.m. he ate a banana, drank some water and sat down when suddenly he started having chest pain described as a pressure type, 8/10 in intensity, localized in the left side of the chest, nonradiating. Associated to this chest pressure the patient also endorsed mild nausea and mild shortness of breath due to his chest pressure, but no vomiting or diaphoresis. He denies any similar symptoms previously. The patient currently denies any cough, diarrhea, constipation, lightheadedness, dizziness. After admission patient was extensively evaluated and treated, coronary artery were clear, no stent placement, he was cleared today for discharge by call person, medication reconciled, follow-up PCP Cardiology in the morning, today on physical exam Vital signs, stable ,afebrile. Pulse Oximetry reflects adequate oxygenation. General: well developed, well nourished. Awake , alert, and oriented x4, resting comfortably in the bed, in no acute distress . Skin: Warm, dry, no pallor, no rash or petechiae. HEENT: Atraumatic, normocephalic, EOMI, anicteric sclera B; pink conjunctiva; PERRLA, normal oropharynx, moist oral and nasal mucosa. Tympanic membrane , nose , throat clear. Neck: Trachea midline. Supple, full range of motion, no JVD, bruit , hepatojugular reflex , lymphadenopathy or masses, or other lesions Cardiac: Regular rhythm, regular rate no murmurs, rubs, or gallops. Normal S1 and S2, no S3 noticed. PMI is normal. Respiratory: Equal breath sounds bilaterally, no tachypnea; lungs clear to auscultation bilaterally, no wheezing ,rub or rales, or crackles. Chest wall is symmetric and without deformity. No signs of trauma. Chest wall is nontender. No signs of respiratory distress. Resonance is normal upon percussion bilaterally. Gastrointestinal: Abdomen symmetric, non-distended, soft, non-tender, normal bowel sounds x4 quadrant, normoactive, no hepatosplenomegaly , no masses , no bruit, no flank pain bilaterally. No voluntary guarding, rebound, or rigidity. No tenderness to percussion. No pulsatile masses. Equal femoral pulses. No Parisi's sign or McBurney point tenderness. Back; no CVA tenderness bilaterally, no deformities. Neck and back are without deformity as well. No tenderness noted on palpation of the spinous processes. Spinous processes are midline. Cervical, thoracic, and lumbar paraspinal muscles are not tender and are without spasm. : normal external genitalia, without lesions, swelling, masses or tenderness. Musculoskeletal: Extremities, normal range of motion, non-tender, muscle strength 5/5 x 4. Negative Homans signs bilaterally on lower extremity. Distal pulses full symmetrical, no clubbing, cyanosis , edema. Neurological: Speech is clear, alert, and oriented x 4. No motor or sensory deficit, deep tendon reflexes normal, cerebellar intact. Cranial nerves II-XII intact. Psych: Alert and or appropriate, normal affect. Vascular: Good distal pulses, which are equal x4; capillary refill less than 2 seconds. Lymphatic, no lymphadenopathy. *Problems/Diagnosis: (1) NSTEMI (non-ST elevated myocardial infarction) Status: Acute Total Time Spent on D/C: > 30 Minutes Date of Service: July 29, 2024 Billing Provider: BRIANNE MORA MD Common Visit Codes: 18631-TUV/OBS DISCH DAY >30min BRIANNE MORA MD July 29, 2024 19:37
== END 2024-07-29 16:00 | disposition home or self-care (01) | DRG 282 ==
LOC: ER 02:23 → ED HOLD 03:33 → PCU 3S 04:55
PROVIDERS: ADMIT Internal Medicine; ATTEND Family Medicine
PROC: 4A023N7 Measurement of Cardiac Sampling and Pressure, Left Heart, Percutaneous Approach (ICD-10-PCS; principal; 2024-07-27)
PROC: B2111ZZ Fluoroscopy of Multiple Coronary Arteries using Low Osmolar Contrast (ICD-10-PCS; 2024-07-27)
PROC: CB121ZZ Planar Nuclear Medicine Imaging of Lungs and Bronchi using Technetium 99m (Tc-99m) (ICD-10-PCS; 2024-07-28)
DX: I21.4 Non-ST elevation (NSTEMI) myocardial infarction (principal); I10 Essential (primary) hypertension; R73.9 Hyperglycemia, unspecified; I25.10 Atherosclerotic heart disease of native coronary artery without angina pectoris; Z79.01 Long term (current) use of anticoagulants; Z79.82 Long term (current) use of aspirin; Z79.899 Other long term (current) drug therapy
CPT/HCPCS: 36415; 78582; 80053; 80061; 83036; 83735; 83880; 84132; 84443; 84484; 85007; 85025; 85379; 85610; 85730; 87081; 93005; 93306; 93458; 96374; 99152; 99285; A6258; A9539; A9540; C1894; G0378; J1644; J2003; J2250; J3010; J3490; J7030; Q9967